=== PATIENT | male | born 1995 | race Two or more races ===

== ENCOUNTER 2018-12-04 15:19 | Inpatient (IN) | payer OTHER ==
[2018-12-04] MEDS ORDERED: IV NS 0.9% 1,000 ML BAG IV ONE ×3 (15:30→20:30)
[2018-12-04] MEDS ORDERED: IV D5/0.45 NACL 500 ML IV ONE (20:00)
[2018-12-04] MEDS: IV NS 0.9% 1,000 ML IV SCH (21:23)
[2018-12-04] MEDS ORDERED: HYDROCODONE/APAP 5/325MG 1 EACH TABLET PO PRN (21:30)
[2018-12-04] MEDS ORDERED: MAGNESIUM HYDROXIDE 30 ML UDC PO PRN (21:30)
[2018-12-04] MEDS ORDERED: Z GUARD REMEDY 2 OZ OINT TP PRN (21:30)
[2018-12-04] MEDS ORDERED: ZOLPIDEM TARTRATE 5 MG TABLET PO PRN (21:30)
[2018-12-04] MEDS ORDERED: ACETAMINOPHEN 325 MG TABLET PO PRN (21:30)
[2018-12-04] MEDS ORDERED: MAG HYDROX/AL HYDROX/SIMETH 30 ML UDC PO PRN (21:30)
[2018-12-04] MEDS ORDERED: ONDANSETRON HCL/PF 4 MG/2 ML VIAL IVP PRN (21:30)
[2018-12-05] MEDS: IV NS 0.9% 1,000 ML IV SCH ×3 (02:30→13:01)
== END 2018-12-05 16:00 | disposition home or self-care (01) | DRG 351 ==
DX: M62.82 Rhabdomyolysis (principal); N17.0 Acute kidney failure with tubular necrosis; R73.9 Hyperglycemia, unspecified